=== PATIENT | male | born 1950 | race Hispanic/Latino ===

== ENCOUNTER → 2021-07-22 | Outpatient (CLI) | payer OTHER | LOC: RAH 13:43 | PROVIDERS: ATTEND Internal Medicine Cardiovascular Disease | DX: Z13.6 Encounter for screening for cardiovascular disorders (principal); I51.5 Myocardial degeneration | CPT/HCPCS: 75571 ==

== ENCOUNTER 2021-09-21 12:49 | Emergency (ER) | payer OTHER ==
[~2021-09-21] VITALS: Ht 175.3 cm; Wt 93.0 kg
[~2021-09-21 12:49] MED LIST: APIX5TAB PO; ATOR10 PO; CLOP75TA14 PO; METO-408 PO
[2021-09-21 13:07] LABS: BASOPHILS % (AUTO) 0.7 % (0.0-5.0); EOSINOPHILS % (AUTO) 2.7 % (0.0-8.0); HEMATOCRIT 45.3 % (42-54); LYMPHOCYTES % (AUTO) 31.7 % (21.0-51.0); MEAN CORPUSCULAR HEMOGLOBIN 28.8 pg (27.0-33.0); MEAN CORPUSCULAR HGB CONC 33.6 g/dL (32.0-36.0); NEUTROPHILS % (AUTO) 55.6 % (40.0-77.0); PLATELET COUNT (AUTO) 168 K/uL (130-400); RED BLOOD CELL COUNT(AUTO) 5.27 MIL/uL (4.50-6.20); RED CELL DISTRIBUTION WIDTH 12.9 % (11.0-15.5); WHITE BLOOD COUNT (AUTO) 7.1 K/uL (4.8-10.8)
[2021-09-21 13:19] LABS: CREATININE 1.1 mg/dL (0.5-1.5); INR 1.02 (0.85-1.15); POTASSIUM 3.8 mmol/L (3.5-5.1); PROTHROMBIN TIME 11.1 SEC (9.6-11.6)
[2021-09-21 13:24] LABS: ALBUMIN 3.9 g/dL (3.5-5.0); BILIRUBIN,TOTAL 1.5 mg/dL (0.2-1.0); TOTAL PROTEIN, SERUM 8.1 g/dL (6.0-8.3)
[2021-09-21 13:44] LABS: B-TYPE NATRIURETIC PEPTIDE 122 pg/mL (0-100)
[2021-09-21] MEDS ORDERED: IOHEXOL 350 MG/ML 100ML INFUS..BTL IV ONE (14:19)
[2021-09-21 14:53] VITALS: BP 141/75
== END 2021-09-21 16:24 | disposition home or self-care (01) ==
LOC: EDH 12:49
DX: M94.0 Chondrocostal junction syndrome [Tietze] (principal); E04.1 Nontoxic single thyroid nodule; Z20.822 Contact with and (suspected) exposure to COVID-19; E78.00 Pure hypercholesterolemia, unspecified; I25.10 Atherosclerotic heart disease of native coronary artery without angina pectoris; Z79.01 Long term (current) use of anticoagulants; Z79.899 Other long term (current) drug therapy
CPT/HCPCS: 36415; 71045; 71275; 80053; 82948; 83880; 84484; 85025; 85610; 87635; 93005; 99285; C9803; Q9967

== ENCOUNTER 2021-10-01 05:44 | Day surgery (SDC) | payer OTHER ==
[2021-09-29 11:39] LABS: BASOPHILS % (AUTO) 0.9 % (0.0-5.0); EOSINOPHILS % (AUTO) 3.4 % (0.0-8.0); LYMPHOCYTES % (AUTO) 26.2 % (21.0-51.0); MEAN CORPUSCULAR HEMOGLOBIN 28.8 pg (27.0-33.0); MEAN CORPUSCULAR HGB CONC 32.7 g/dL (32.0-36.0); MEAN CORPUSCULAR VOLUME 88.2 fL (79-99); MONOCYTES % (AUTO) 8.7 % (3.0-13.0); NEUTROPHILS % (AUTO) 60.6 % (40.0-77.0); PLATELET COUNT (AUTO) 149 K/uL (130-400); WHITE BLOOD COUNT (AUTO) 5.5 K/uL (4.8-10.8)
[2021-09-29 11:46] LABS: CREATININE 1.1 mg/dL (0.5-1.5); POTASSIUM 4.9 mmol/L (3.5-5.1)
[2021-09-29 12:30] LABS: PROTHROMBIN TIME 10.9 SEC (9.6-11.6)
[2021-09-29 12:31] LABS: PARTIAL THROMBOPLASTIN TIME 30.7 SEC (26.3-35.5)
[2021-09-30 08:41] VITALS: BP 134/77
[2021-10-01] VITALS (13 sets, daily range): BP systolic 126–167; BP diastolic 73–92
[~2021-10-01] VITALS: Ht 175.3 cm; Wt 93.7 kg
[2021-10-01] MEDS ORDERED: HEPARIN 10,000 UNIT/10ML (1,000 UNIT/ML) VIAL ONE (07:09)
[2021-10-01] MEDS ORDERED: LIDOCAINE HCL 400MG/20ML VIAL ONE (07:10)
[2021-10-01] MEDS ORDERED: MIDAZOLAM HCL 1 MG/ML 2ML VIAL ONE ×2 (07:10→08:22)
[2021-10-01] MEDS ORDERED: MEPERIDINE-PF 25 MG/ML SYG ONE ×2 (07:10→08:22)
[2021-10-01] MEDS ORDERED: 0.9%NACL 1000ML 1,000 ML IV ONE (07:20)
== END 2021-10-01 15:35 | disposition home or self-care (01) ==
LOC: DAH 05:44
PROVIDERS: ATTEND Internal Medicine Cardiovascular Disease
DX: I48.3 Typical atrial flutter (principal); I49.3 Ventricular premature depolarization; I45.10 Unspecified right bundle-branch block; E78.5 Hyperlipidemia, unspecified; Z79.899 Other long term (current) drug therapy; Z95.5 Presence of coronary angioplasty implant and graft; Z79.01 Long term (current) use of anticoagulants
CPT/HCPCS: 80048; 85025; 85610; 85730; 36415; 93005; 93653; 93662; C1894 ×3; A4649 ×2; C1732; C1730; J3490; J7030; J1644 ×2; J2250; J2175; A4215; A6402; A4222; A4221; A4663; A4216; A4606; A4223 ×3; 99156; 99157

== ENCOUNTER → 2022-09-11 | Outpatient (CLI) | payer OTHER ==
[~2022-09-11] MED LIST changes: +CLOP-31 PO; -CLOP75TA14 PO
[2022-09-11 08:23] LABS: INR 0.99 (0.85-1.15); PROTHROMBIN TIME 10.8 SEC (9.6-11.6)
[2022-09-11 08:25] LABS: PARTIAL THROMBOPLASTIN TIME 38.2 SEC (26.3-35.5)
== END | disposition home or self-care (01) ==
LOC: RAH 07:45
PROVIDERS: ATTEND Internal Medicine
DX: E04.2 Nontoxic multinodular goiter (principal); Z79.01 Long term (current) use of anticoagulants; Z79.899 Other long term (current) drug therapy
CPT/HCPCS: 10005; 10006; 36415; 76942; 85610; 85730

== ENCOUNTER → 2024-08-21 | Outpatient (CLI) | payer OTHER ==
--- NOTE | 2024-08-22 11:09 | HMCIMG ---
MR SHOULDER RIGHT WO REASON: M75.40 Impingement syndrome of unspecified shoulder COMPARISON: None TECHNIQUE: Routine imaging protocol was performed in the axial, oblique coronal and oblique sagittal plane with T1, proton density, T2 and gradient recalled sequences. Images are performed without IV contrast. FINDINGS: There is a focal tear in the supraspinatus portion of the rotator cuff. This is present somewhat anteriorly. Proximal and distal fragments do not appears to be significantly distracted. The rotator cuff appears otherwise unremarkable. There are AC joint degenerative changes. There is no restricted directed osteophyte. This can result in impingement in the appropriate clinical setting. There is diffuse globular thickening and increased signal in the remaining untoward portion of the rotator cuff consistent with tendinitis or tendinosis. Glenohumeral joint space appears preserved. Biceps tendon is visualized. There are no focal osseous lesions. Shotty soft tissues are unremarkable. IMPRESSION: 1. Tear anteriorly in the supraspinatus tendon, the remainder of the tendon shows thickening and increased signal consistent with tendinosis or tendinitis. 2. Infiltrate directed osteophyte degenerated AC joint, this can result in impingement syndrome in the appropriate clinical setting.
== END | disposition home or self-care (01) ==
LOC: RAH 12:14
PROVIDERS: ATTEND Internal Medicine
DX: S46.011A Strain of muscle(s) and tendon(s) of the rotator cuff of right shoulder, initial encounter (principal); M19.011 Primary osteoarthritis, right shoulder; M25.711 Osteophyte, right shoulder; M75.41 Impingement syndrome of right shoulder; X58.XXXA Exposure to other specified factors, initial encounter; Y93.89 Activity, other specified; Y92.89 Other specified places as the place of occurrence of the external cause; Y99.8 Other external cause status
CPT/HCPCS: 73221